=== PATIENT | female | born 1960 | race Caucasian/White ===

== ENCOUNTER → 2016-06-05 | Outpatient (CLI) | payer OTHER ==
[2016-06-05 12:18] LABS: Basophils # (auto) 0 uL; Basophils % (auto) 0.2 % (0.0-2.0); DEFINITIVE VIEW TRANSMISSION; Eosinophils # (auto) 0.2 uL; Eosinophils % (auto) 1.8 % (0.0-7.0); Hemoglobin 14.6 g/dL (12.2-16.2); Mean Corpuscular Hemoglobin 26.9 pg (28.0-32.0); Mean Corpuscular Volume 81.5 fL (80.0-100.0); Mean Platelet Volume 8.7 fL (7.4-10.4); Monocytes # (auto) 0.4 uL; Monocytes % (auto) 3.6 % (0.0-12.0); Neutrophils # (auto) 6.1 uL; Neutrophils % (auto) 63.4 % (37.0-80.0); Platelet Count (auto) 298 10^3/uL (140-450); Red Cell Distribution Width 13.8 % (11.6-16.0); Urine Bilirubin Negative (Negative); Urine Color Yellow (Yellow); Urine Glucose Normal (Normal); Urine Ketone Negative (Negative); Urine Nitrite Negative (Negative); Urine Urobilinogen Normal (Negative); Urine pH 5.5 (5.0-8.0); White Blood Cell 9.6 10^3/uL (4.4-10.8)
[2016-06-05 12:21] LABS: Urine Blood 1+ /uL (Negative)
[2016-06-05 13:10] LABS: BUN/Creatinine Ratio 14.5; Bilirubin, Direct 0.2 mg/dL (0-0.2); Bilirubin, Total 0.9 mg/dL (0.2-1.0); Calcium 9.3 mg/dL (8.5-10.1); Potassium 3.9 mmol/L (3.5-5.1); Total Protein 7.8 g/dL (6.4-8.2)
== END | disposition home or self-care (01) ==
LOC: LAB 08:42
PROVIDERS: ATTEND Internal Medicine Cardiovascular Disease
DX: I10 Essential (primary) hypertension (principal); E78.00 Pure hypercholesterolemia, unspecified; K74.1 Hepatic sclerosis; E11.9 Type 2 diabetes mellitus without complications; E03.9 Hypothyroidism, unspecified; D64.9 Anemia, unspecified; E55.9 Vitamin D deficiency, unspecified; N39.0 Urinary tract infection, site not specified
CPT/HCPCS: 36415; 80048; 80061; 80076; 81003; 82306; 83036; 84443; 85025

== ENCOUNTER → 2017-01-15 | Outpatient (CLI) | payer OTHER ==
[2017-01-15 16:21] LABS: Albumin 3.6 g/dL (3.4-5.0); BUN/Creatinine Ratio 13.6; Calcium 9.4 mg/dL (8.5-10.1); Potassium 3.5 mmol/L (3.5-5.1)
[2017-01-15 16:24] LABS: Bilirubin, Total 1.2 mg/dL (0.2-1.0); Total Protein 7.7 g/dL (6.4-8.2)
[2017-01-15 16:28] LABS: Basophils # (auto) 0 uL; Basophils % (auto) 0.3 % (0.0-2.0); Eosinophils # (auto) 0.2 uL; Eosinophils % (auto) 2.3 % (0.0-7.0); Hematocrit 46.8 % (36.0-46.0); Hemoglobin 15.6 g/dL (12.2-16.2); Lymphocytes # (auto) 2.7 uL; Mean Corpuscular Hemoglobin 28.2 pg (28.0-32.0); Mean Corpuscular Hgb Conc. 33.4 g/dL (32.0-36.0); Mean Corpuscular Volume 84.7 fL (80.0-100.0); Mean Platelet Volume 7.9 fL (6.9-10.8); Monocytes # (auto) 1.2 uL; Monocytes % (auto) 12.8 % (0.0-12.0); Neutrophils # (auto) 5.3 uL; Neutrophils % (auto) 55.6 % (37.0-80.0); Nucleated Red Blood Cells % 0.3 %; Platelet Count (auto) 353 10^3/uL (140-450); White Blood Cell 9.5 10^3/uL (4.4-10.8)
== END | disposition home or self-care (01) ==
LOC: LAB 11:30
PROVIDERS: ATTEND Internal Medicine Cardiovascular Disease
DX: R19.5 Other fecal abnormalities (principal); I10 Essential (primary) hypertension; D64.9 Anemia, unspecified
CPT/HCPCS: 36415; 80053; 85025; 87177

== ENCOUNTER → 2017-03-28 | Outpatient (CLI) | payer OTHER | END | disposition home or self-care (01) | LOC: LAB 09:06 | PROVIDERS: ATTEND Internal Medicine Cardiovascular Disease | DX: E03.9 Hypothyroidism, unspecified (principal) | CPT/HCPCS: 36415; 84436; 84443; 84480 ==

== ENCOUNTER → 2017-04-06 | Outpatient (CLI) | payer OTHER ==
[~2017-04-06] VITALS: Ht 30.5 cm; Wt 0.5 kg
[~2017-04-06] MED LIST: ADENOSINE 61 MG in GIVE UN-DILUTED 0 ML IV ONE; ADENOSINE 90 MG/30 ML INJ IV ONE
== END | disposition home or self-care (01) ==
LOC: Rad HDHVI 08:09
PROVIDERS: ATTEND Internal Medicine Cardiovascular Disease
DX: I47.1 Supraventricular tachycardia (principal); I10 Essential (primary) hypertension; M25.511 Pain in right shoulder; I48.0 Paroxysmal atrial fibrillation; Z91.81 History of falling
CPT/HCPCS: 78452; 93005; 93306; 96374; 96375; A9500; J0153

== ENCOUNTER → 2017-04-24 | Outpatient (CLI) | payer OTHER ==
[~2017-04-24] MED LIST changes: -ADENOSINE 61 MG in GIVE UN-DILUTED 0 ML IV ONE; -ADENOSINE 90 MG/30 ML INJ IV ONE; +AMIO200T33 PO; +ASCO500T11 PO; +CARI-277 PO; +HYDR-4683 PO; +MULTTAB99 PO; +OMEP20CA74 PO; +PROBTAB12 OR; +SIMV-8 PO; +TRIA75TA55 PO
[2017-04-24 09:00] VITALS: BP 141/79
[2017-04-24 11:51] LABS: Basophils # (auto) 0 uL; Basophils % (auto) 0.2 % (0.0-2.0); Eosinophils # (auto) 0.1 uL; Eosinophils % (auto) 1.2 % (0.0-7.0); Hematocrit 42.7 % (36.0-46.0); Lymphocytes # (auto) 2.3 uL; Lymphocytes % (auto) 21.3 % (10.0-50.0); Mean Corpuscular Hemoglobin 27.5 pg (28.0-32.0); Mean Corpuscular Hgb Conc. 32.8 g/dL (32.0-36.0); Mean Corpuscular Volume 83.9 fL (80.0-100.0); Monocytes # (auto) 0.4 uL; Monocytes % (auto) 3.8 % (0.0-12.0); Neutrophils # (auto) 8.1 uL; Neutrophils % (auto) 73.5 % (37.0-80.0); Nucleated Red Blood Cells % 0.1 %; Platelet Count (auto) 300 10^3/uL (140-450); Red Blood Cells 5.08 10^6/uL (4.0-5.20); Red Cell Distribution Width 14.2 % (11.8-14.3)
[2017-04-24 12:04] LABS: INR 0.91 (0.9-1.15); Partial Thromboplastin Time 26.8 sec (22.64-33.71); Prothrombin Time 9.9 sec (9.37-12.3)
[2017-04-24 12:27] LABS: BUN/Creatinine Ratio 19.7; Calcium 8.4 mg/dL (8.5-10.1); Potassium 4.1 mmol/L (3.5-5.1)
== END | disposition home or self-care (01) ==
LOC: Rad HDHVI 09:18
PROVIDERS: ATTEND Internal Medicine Cardiovascular Disease
DX: Z01.818 Encounter for other preprocedural examination (principal); I70.0 Atherosclerosis of aorta; D64.9 Anemia, unspecified; I10 Essential (primary) hypertension; R79.1 Abnormal coagulation profile; I48.0 Paroxysmal atrial fibrillation; I47.1 Supraventricular tachycardia
CPT/HCPCS: 36415; 71046; 80048; 85025; 85610; 85730; 93005; G0463

== ENCOUNTER 2017-04-26 09:22 | Day surgery (SDC) | payer OTHER ==
[~2017-04-26] VITALS: Ht 152.4 cm; Wt 73.5 kg
[2017-04-26] MEDS ORDERED: LIDOCAINE 2%HCL (LOCAL ANESTH.) INJ 20ML MDV ONE (10:39)
[2017-04-26] MEDS ORDERED: IOHEXOL 350 MG/ML 100ML IJ ONE (10:39)
[2017-04-26] MEDS ORDERED: fentaNYL CITRATE 100 MCG/2 ML VL ONE (10:42)
[2017-04-26] MEDS ORDERED: MIDAZOLAM HCL 1MG/1ML-2 ML VIAL ONE (10:42)
[2017-04-26] MEDS ORDERED: ANGIOMAX 250 MG VIAL IV ONE (10:42)
[2017-04-26] MEDS ORDERED: SODIUM CHL 0.9% 0 ML ONE (10:46)
== END 2017-04-26 13:50 | disposition home or self-care (01) ==
LOC: CATH 09:22
PROVIDERS: ATTEND Internal Medicine Cardiovascular Disease
DX: I47.1 Supraventricular tachycardia (principal); R94.39 Abnormal result of other cardiovascular function study; Z88.0 Allergy status to penicillin; I10 Essential (primary) hypertension; E78.5 Hyperlipidemia, unspecified
CPT/HCPCS: 93458; C1760; C1894; J1644; J2250; J3010; J7030; Q9967; 99152

== ENCOUNTER → 2017-04-30 | Outpatient (CLI) | payer OTHER ==
[~2017-04-30] VITALS: Ht 30.5 cm; Wt 74.8 kg
[~2017-04-30] MED LIST changes: +IOHEXOL 350 MG/ML 100ML IJ ONE; +KETOROLAC TROMETH 60MG/2ML VIAL IM ONE
[2017-04-30 10:35] VITALS: BP 134/77
[2017-04-30 12:15] VITALS: BP 146/65
== END | disposition home or self-care (01) ==
LOC: CHF HDHVI 10:34
PROVIDERS: ATTEND Internal Medicine Cardiovascular Disease
DX: K57.50 Diverticulosis of both small and large intestine without perforation or abscess without bleeding (principal); I70.0 Atherosclerosis of aorta
CPT/HCPCS: 74177; 82565; 96372; 96374; G0463; J1885; Q9967

== ENCOUNTER → 2017-05-01 | Outpatient (CLI) | payer OTHER ==
[~2017-05-01] MED LIST changes: -IOHEXOL 350 MG/ML 100ML IJ ONE; -KETOROLAC TROMETH 60MG/2ML VIAL IM ONE
== END | disposition home or self-care (01) ==
LOC: Rad HDHVI 11:04
PROVIDERS: ATTEND Internal Medicine Cardiovascular Disease
DX: I73.9 Peripheral vascular disease, unspecified (principal); I49.5 Sick sinus syndrome
CPT/HCPCS: 93926; 93971

== ENCOUNTER → 2017-10-02 | Outpatient (CLI) | payer OTHER | END | disposition home or self-care (01) | LOC: LAB 08:49 | PROVIDERS: ATTEND Internal Medicine Cardiovascular Disease | DX: M32.9 Systemic lupus erythematosus, unspecified (principal); G89.4 Chronic pain syndrome; M32.10 Systemic lupus erythematosus, organ or system involvement unspecified; M05.9 Rheumatoid arthritis with rheumatoid factor, unspecified | CPT/HCPCS: 86225; 86235; 86376; 86431 ==

== ENCOUNTER → 2018-06-14 | Outpatient (CLI) | payer OTHER ==
[2018-06-14 15:45] LABS: Urine Blood TRACE /uL (Negative); Urine Specific Gravity 1.014 (1.001-1.035)
[2018-06-14 15:55] LABS: Albumin 4.1 g/dL (3.4-5.0); Basophils # (auto) 0 uL; Basophils % (auto) 0.2 % (0.0-2.0); Calcium 9.5 mg/dL (8.5-10.1); Eosinophils # (auto) 0.1 uL; Eosinophils % (auto) 1.1 % (0.0-7.0); Hematocrit 46.7 % (36.0-46.0); Hemoglobin 15.2 g/dL (12.2-16.2); Lymphocytes # (auto) 3.8 uL; Mean Corpuscular Hemoglobin 27.2 pg (28.0-32.0); Mean Corpuscular Hgb Conc. 32.6 g/dL (32.0-36.0); Mean Corpuscular Volume 83.6 fL (80.0-100.0); Monocytes # (auto) 0.5 uL; Neutrophils # (auto) 7.8 uL; Neutrophils % (auto) 63.7 % (37.0-80.0); Nucleated Red Blood Cells % 0.1 %; Platelet Count (auto) 384 10^3/uL (140-450); Potassium 3.7 mmol/L (3.5-5.1); Red Blood Cells 5.58 10^6/uL (4.0-5.20); Red Cell Distribution Width 13.7 % (11.8-14.3); White Blood Cell 12.2 10^3/uL (4.4-10.8)
[2018-06-14 15:59] LABS: BUN/Creatinine Ratio 17.1; Bilirubin, Direct 0.2 mg/dL (0-0.2); Bilirubin, Total 1.2 mg/dL (0.2-1.0); Total Protein 8.5 g/dL (6.4-8.2)
== END | disposition home or self-care (01) ==
LOC: LAB 12:01
PROVIDERS: ATTEND Internal Medicine Cardiovascular Disease
DX: E55.9 Vitamin D deficiency, unspecified (principal); E03.9 Hypothyroidism, unspecified; K74.1 Hepatic sclerosis; E11.9 Type 2 diabetes mellitus without complications; N39.0 Urinary tract infection, site not specified
CPT/HCPCS: 36415; 80048; 80061; 80076; 81003; 82306; 83036; 84443; 85025; 87086

== ENCOUNTER → 2019-11-03 | Outpatient (CLI) | payer OTHER ==
[~2019-11-03] MED LIST changes: -HYDR-4683 PO; +HYDR-4833 PO
[2019-11-03 08:35] LABS: Basophils # (auto) 0.1 10 ^3/uL (0-0.2); Basophils % (auto) 0.5 % (0.0-2.0); Eosinophils # (auto) 0.1 10 ^3/uL (0-0.8); Eosinophils % (auto) 0.9 % (0.0-7.0); Hematocrit 44.8 % (36.0-46.0); Hemoglobin 14.8 g/dL (12.2-16.2); Lymphocytes # (auto) 3.4 10 ^3/uL (0.4-5.4); Lymphocytes % (auto) 27.3 % (10.0-50.0); Mean Corpuscular Hemoglobin 27.4 pg (28.0-32.0); Mean Corpuscular Volume 83.1 fL (80.0-100.0); Monocytes # (auto) 0.5 10 ^3/uL (0-1.3); Monocytes % (auto) 3.7 % (0.0-12.0); Neutrophils # (auto) 8.4 10 ^3/uL (1.6-8.6); Neutrophils % (auto) 67.6 % (37.0-80.0); Nucleated Red Blood Cells % 0.1 %; Platelet Count (auto) 351 10^3/uL (140-450); Red Cell Distribution Width 13.9 % (11.8-14.3); White Blood Cell 12.4 10^3/uL (4.4-10.8)
[2019-11-03 08:48] LABS: Urine Blood 1+ /uL (Negative); Urine Specific Gravity 1.015 (1.001-1.035)
[2019-11-03 09:18] LABS: Calcium 9.6 mg/dL (8.5-10.1); Potassium 4.6 mmol/L (3.5-5.1)
[2019-11-03 09:22] LABS: BUN/Creatinine Ratio 23.7; Bilirubin, Total 0.7 mg/dL (0.2-1.0); Free T4 (Free Thyroxine) 1.15 ng/dL (0.89-1.76); T3 Total 0.96 ng/mL (0.60-1.81); Total Protein 8.1 g/dL (6.4-8.2)
== END | disposition home or self-care (01) ==
LOC: LAB 08:18
PROVIDERS: ATTEND Internal Medicine Cardiovascular Disease
DX: Z00.00 Encounter for general adult medical examination without abnormal findings (principal); E03.9 Hypothyroidism, unspecified; K90.9 Intestinal malabsorption, unspecified; N39.0 Urinary tract infection, site not specified; D51.9 Vitamin B12 deficiency anemia, unspecified; Z79.899 Other long term (current) drug therapy
CPT/HCPCS: 36415; 80053; 80061; 81003; 82607; 83036; 84439; 84443; 84480; 85025

== ENCOUNTER → 2019-11-27 | Outpatient (CLI) | payer OTHER | END | disposition home or self-care (01) | LOC: Rad HDHVI 08:10 | PROVIDERS: ATTEND Internal Medicine Cardiovascular Disease | DX: I47.1 Supraventricular tachycardia (principal); R00.2 Palpitations; R06.02 Shortness of breath | CPT/HCPCS: 93306 ==

== ENCOUNTER → 2019-12-29 | Outpatient (CLI) | payer OTHER ==
[~2019-12-29] VITALS: Ht 152.4 cm; Wt 75.3 kg
[~2019-12-29] MED LIST changes: +ADENOSINE 63 MG in GIVE UN-DILUTED 0 ML IV ONE; +ADENOSINE 90 MG/30 ML INJ IV ONE
== END | disposition home or self-care (01) ==
LOC: Rad HDHVI 08:12
PROVIDERS: ATTEND Internal Medicine Cardiovascular Disease
DX: I10 Essential (primary) hypertension (principal); E78.00 Pure hypercholesterolemia, unspecified; Z82.49 Family history of ischemic heart disease and other diseases of the circulatory system
CPT/HCPCS: 78452; 93005; 96374; 96375; A9500; J0153

== ENCOUNTER → 2020-08-16 | Outpatient (CLI) | payer OTHER ==
[~2020-08-16] MED LIST changes: -ADENOSINE 63 MG in GIVE UN-DILUTED 0 ML IV ONE; -ADENOSINE 90 MG/30 ML INJ IV ONE
[2020-08-16 12:27] LABS: Potassium 3.9 mmol/L (3.5-5.1)
[2020-08-16 12:40] LABS: BUN/Creatinine Ratio 21.4; Calcium 9.3 mg/dL (8.5-10.1); Magnesium 2.6 mg/dL (1.6-2.6)
== END | disposition home or self-care (01) ==
LOC: LAB 10:06
PROVIDERS: ATTEND Internal Medicine Cardiovascular Disease
DX: I10 Essential (primary) hypertension (principal); I49.9 Cardiac arrhythmia, unspecified
CPT/HCPCS: 36415; 80048; 83735

== ENCOUNTER → 2020-11-12 | Outpatient (CLI) | payer OTHER ==
[2020-11-12 12:07] LABS: Basophils # (auto) 0 10 ^3/uL (0-0.2); Basophils % (auto) 0.3 % (0.0-2.0); Eosinophils # (auto) 0.2 10 ^3/uL (0-0.8); Eosinophils % (auto) 1.3 % (0.0-7.0); Hematocrit 40.3 % (36.0-46.0); Hemoglobin 13.8 g/dL (12.2-16.2); Lymphocytes # (auto) 3.1 10 ^3/uL (0.4-5.4); Lymphocytes % (auto) 25.4 % (10.0-50.0); Mean Corpuscular Hemoglobin 28.1 pg (28.0-32.0); Mean Corpuscular Hgb Conc. 34.1 g/dL (32.0-36.0); Mean Corpuscular Volume 82.4 fL (80.0-100.0); Monocytes # (auto) 0.6 10 ^3/uL (0-1.3); Monocytes % (auto) 4.7 % (0.0-12.0); Neutrophils # (auto) 8.2 10 ^3/uL (1.6-8.6); Neutrophils % (auto) 68.3 % (37.0-80.0); Nucleated Red Blood Cells % 0.1 %
[2020-11-12 12:10] LABS: Urine Blood TRACE /uL (Negative)
[2020-11-12 12:23] LABS: Potassium 3.9 mmol/L (3.5-5.1)
[2020-11-12 12:31] LABS: Free T4 (Free Thyroxine) 1.33 ng/dL (0.89-1.76); T3 Total 1.29 ng/mL (0.60-1.81)
[2020-11-12 12:35] LABS: Albumin 3.4 g/dL (3.4-5.0); BUN/Creatinine Ratio 18.3; Bilirubin, Total 0.8 mg/dL (0.2-1.0); Calcium 9.2 mg/dL (8.5-10.1); Total Protein 7.6 g/dL (6.4-8.2)
== END | disposition home or self-care (01) ==
LOC: LAB 09:05
PROVIDERS: ATTEND Internal Medicine Cardiovascular Disease
DX: D51.3 Other dietary vitamin B12 deficiency anemia (principal); I10 Essential (primary) hypertension; E11.9 Type 2 diabetes mellitus without complications; E55.9 Vitamin D deficiency, unspecified; D64.9 Anemia, unspecified; R00.2 Palpitations; R53.1 Weakness; R30.0 Dysuria
CPT/HCPCS: 36415; 80053; 80061; 81003; 82306; 82607; 83036; 84439; 84443; 84480; 85025; 87086

== ENCOUNTER → 2020-11-18 | Outpatient (CLI) | payer OTHER | END | disposition home or self-care (01) | LOC: Rad HDHVI 13:05 | PROVIDERS: ATTEND Internal Medicine Cardiovascular Disease | DX: M47.816 Spondylosis without myelopathy or radiculopathy, lumbar region (principal); M43.16 Spondylolisthesis, lumbar region; M51.26 Other intervertebral disc displacement, lumbar region; M89.38 Hypertrophy of bone, other site; M51.27 Other intervertebral disc displacement, lumbosacral region; M17.0 Bilateral primary osteoarthritis of knee; M48.07 Spinal stenosis, lumbosacral region; M25.762 Osteophyte, left knee; M25.761 Osteophyte, right knee; M25.562 Pain in left knee; M25.561 Pain in right knee | CPT/HCPCS: 72131; 73562 ==

== ENCOUNTER → 2021-06-21 | Outpatient (CLI) | payer OTHER ==
[2021-06-21 11:45] LABS: Basophils # (auto) 0 10 ^3/uL (0-0.2); Basophils % (auto) 0.4 % (0.0-2.0); Eosinophils # (auto) 0.2 10 ^3/uL (0-0.8); Eosinophils % (auto) 1.9 % (0.0-7.0); Hematocrit 38.8 % (36.0-46.0); Hemoglobin 13.1 g/dL (12.2-16.2); Lymphocytes # (auto) 2.9 10 ^3/uL (0.4-5.4); Lymphocytes % (auto) 32.1 % (10.0-50.0); Mean Corpuscular Hemoglobin 27.4 pg (28.0-32.0); Mean Corpuscular Hgb Conc. 33.8 g/dL (32.0-36.0); Mean Corpuscular Volume 81.1 fL (80.0-100.0); Monocytes # (auto) 0.5 10 ^3/uL (0-1.3); Monocytes % (auto) 5.1 % (0.0-12.0); Neutrophils # (auto) 5.4 10 ^3/uL (1.6-8.6); Neutrophils % (auto) 60.5 % (37.0-80.0); Nucleated Red Blood Cells % 0.1 %; Red Blood Cells 4.78 10^6/uL (4.0-5.20); Red Cell Distribution Width 13.9 % (11.8-14.3)
[2021-06-21 12:33] LABS: Potassium 4.3 mmol/L (3.5-5.1)
[2021-06-21 12:48] LABS: Free T4 (Free Thyroxine) 1.71 ng/dL (0.89-1.76); Urine Blood Negative /uL (Negative); Urine Specific Gravity 1.012 (1.001-1.035)
[2021-06-21 12:59] LABS: Albumin 3.3 g/dL (3.4-5.0); BUN/Creatinine Ratio 21.2; Bilirubin, Total 0.8 mg/dL (0.2-1.0); Calcium 8.6 mg/dL (8.5-10.1); Total Protein 7.1 g/dL (6.4-8.2)
== END | disposition home or self-care (01) ==
LOC: LAB 08:28
PROVIDERS: ATTEND Internal Medicine Cardiovascular Disease
DX: E11.9 Type 2 diabetes mellitus without complications (principal); D51.3 Other dietary vitamin B12 deficiency anemia; D64.9 Anemia, unspecified; E55.9 Vitamin D deficiency, unspecified; I10 Essential (primary) hypertension; R00.2 Palpitations; R53.1 Weakness; R30.0 Dysuria
CPT/HCPCS: 36415; 80053; 80061; 81003; 82306; 82607; 83036; 84439; 84443; 85025

== ENCOUNTER → 2022-01-27 | Outpatient (CLI) | payer OTHER | END | disposition home or self-care (01) | LOC: Rad HDHVI 10:10 | PROVIDERS: ATTEND Internal Medicine Cardiovascular Disease | DX: R00.2 Palpitations (principal); I10 Essential (primary) hypertension | CPT/HCPCS: 93306 ==

== ENCOUNTER → 2023-10-24 | Outpatient (CLI) | payer BC ==
[~2023-10-24] MED LIST changes: -SIMV-8 PO; +SIMV20TA20 PO
== END | disposition home or self-care (01) ==
LOC: Rad HDHVI 08:02
PROVIDERS: ATTEND Internal Medicine Cardiovascular Disease
DX: I10 Essential (primary) hypertension (principal); R07.89 Other chest pain
CPT/HCPCS: 93306